=== PATIENT | male | born 1960 | race Caucasian/White ===

== ENCOUNTER 2017-07-04 09:35 | Emergency (ER) | payer OTHER ==
[~2017-07-04] VITALS: Ht 175.3 cm; Wt 99.8 kg
[2017-07-04] MEDS ORDERED: KEFLEX500 MG PO (12:45)
[2017-07-04 13:43] VITALS: BP 136/80
== END 2017-07-04 13:47 | disposition home or self-care (01) ==
LOC: TRA 09:35 → EME 09:35 → TRA 13:47
DX: S61.411A Laceration without foreign body of right hand, initial encounter (principal); W22.8XXA Striking against or struck by other objects, initial encounter; Y99.0 Civilian activity done for income or pay; Z23 Encounter for immunization; S00.03XA Contusion of scalp, initial encounter; S70.311A Abrasion, right thigh, initial encounter; S31.115A Laceration without foreign body of abdominal wall, periumbilic region without penetration into peritoneal cavity, initial encounter; M79.671 Pain in right foot; I10 Essential (primary) hypertension; K21.9 Gastro-esophageal reflux disease without esophagitis; F17.200 Nicotine dependence, unspecified, uncomplicated
CPT/HCPCS: 70450; 73130; 73650; 99281; 99285; J0690; J1580; J2270; J2405

== ENCOUNTER 2017-07-06 11:01 | Emergency (ER) | payer OTHER ==
[~2017-07-06] VITALS: Ht 175.3 cm; Wt 98.6 kg
[~2017-07-06 11:01] MED LIST: KEFLEX500 MG PO
[2017-07-06] MEDS ORDERED: NORCO 5/3251 TABLET PO (14:01)
[2017-07-06 14:10] VITALS: BP 136/74
== END 2017-07-06 14:12 | disposition home or self-care (01) ==
LOC: EME 11:01
DX: S62.91XD Unspecified fracture of right hand, subsequent encounter for fracture with routine healing (principal); I10 Essential (primary) hypertension; F17.200 Nicotine dependence, unspecified, uncomplicated
CPT/HCPCS: 99281; 99284

== ENCOUNTER → 2017-12-30 | Outpatient (CLI) | payer OTHER ==
[~2017-12-30] MED LIST changes: +NORCO 5/3251 TABLET PO
== END | disposition home or self-care (01) ==
LOC: NUC 13:18
DX: R93.7 Abnormal findings on diagnostic imaging of other parts of musculoskeletal system (principal); G57.51 Tarsal tunnel syndrome, right lower limb; I73.9 Peripheral vascular disease, unspecified; F17.290 Nicotine dependence, other tobacco product, uncomplicated
CPT/HCPCS: 78315; 78999; A9503